=== PATIENT | female | born 2000 | race Caucasian/White ===

== ENCOUNTER 2018-09-23 07:33 | Emergency (ER) | payer OTHER ==
[~2018-09-23] VITALS: Ht 175.3 cm; Wt 90.7 kg
[2018-09-23] MEDS ORDERED: ZITHROMAX PO STA (08:02)
[2018-09-23 08:05] VITALS: BP 123/82
[2018-09-23] MEDS ORDERED: ROCEPHIN ONE (08:09)
[2018-09-23] MEDS ORDERED: ZITHROMAX ONE (08:09)
--- NOTE | 2018-09-23 08:09 | ER.PDOC ---
General Chief Complaint: Female Urogenital Problems Stated Complaint: FEMALE Time seen by MD: 08:00 Source: patient Exam Limitations: no limitations History of Present Illness Timing/Duration: week Severity/Quality: mild Location of Pain: low back pain LMP (females 10-50): 1 month Care: none Sexual [place] History: less than 2 months ago, multiple partners Contraceptive: none Associated Symptoms: lower back pain, urinary frequency Prior symptoms/Treatment: Similar symptoms previous, Recenly Seen, Treated by Doctor Allergies: Coded Allergies: codeine (Verified Allergy, Mild, ITCHING, 09/23/18) Past Medical History Medical History: other (uti) Surgical History: no surgical history LMP (females 10-50): last week Social History Smoking: greater than 1 pack/day Alcohol Use: rarely Drug Use: marijuana Reviewed Nursing Reviewed: Vital Signs, Abn. 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, No Motor/Sensory Deficits, Alert, Normal Mood/Affect, Oriented x 3 Skin: Normal Color, Warm/Dry Lymphatic: No Adenopathy Results/Orders Results/Orders Orders - NIRAV CONDE MD Urinalysis (09/23/18 07:49) Chlamydia/Gcamplification(Ref) (09/23/18 07:49) Hcg Urine (09/23/18 07:50) Ceftriaxone Sodium (Rocephin Im) (09/23/18 09:00) Azithromycin (Zithromax) (09/23/18 08:02) Ceftriaxone Sodium (Rocephin) (09/23/18 08:09) Azithromycin (Zithromax) (09/23/18 08:09) Lidocaine Hcl (Lidocaine 1% Vial) (09/23/18 08:10) Urine Culture (09/23/18 07:50) Vital Signs Date Time Temp Pulse Resp B/P (MAP) Pulse Ox O2 Delivery O2 Flow Rate FiO2 09/23/18 08:05 98.2 94 18 123/82 (96) 99 Room Air 98.2 09/23/18 07:58 98.2 94 20 99 Room Air 98.2 Administered Medications Medications (Trade) Dose Ordered Sig/Elva Route PRN Reason Start Time Stop Time Status Last Admin Dose Admin Azithromycin (Zithromax) 1,000 mg STAT STAT PO 09/23/18 08:02 09/23/18 08:07 DC 09/23/18 08:21 1,000 MG Ceftriaxone Sodium (Rocephin Im) 250 mg DAILY IM 09/23/18 09:00 10/23/18 08:59 09/23/18 08:21 250 MG Laboratory Tests Test 09/23/18 07:50 Urine Collection Type VOID Urine Color DEN (YELLOW) Urine Appearance CLOUDY (CLEAR) H Urine Bilirubin NEGATIVE MG/DL (NEGATIVE) Urine Ketones 15 mg/dL (NEGATIVE) H Urine Specific [place] 1.030 (1.005-1.035) Urine pH 5 (5.0-6.0) Urine Protein 500 mg/dL (NEGATIVE) H Urine Urobilinogen NORMAL (NEGATIVE) Urine Nitrate NEGATIVE (NEGATIVE) Urine Leukocyte Esterase 500/uL 2+ (NEGATIVE) Urine Blood 250 4+ (NEGATIVE) H Urine RBC TNTC RBC/HPF (NONE SEEN) H Urine WBC TNTC WBC/HPF (0-2) H Urine Squamous Epithelial Cells MANY #/HPF (FEW) Urine Bacteria MANY (NONE SEEN) H Urine Glucose NORMAL (NEGATIVE) Urine HCG, Qualitative NEGATIVE (NEGATIVE) Departure Time of Disposition: 09:00 Disposition: 01 HOME, SELF-CARE Impression: Primary Impression: Cystitis Additional Impression: STD exposure Condition: Improved Referrals: PCP,UNKNOWN (PCP) PRIMARY CARE PROVIDER Duration or Time Spent with Pa: 1 hr Problem Qualifiers NIRAV CONDE MD Sep 23, 2018 08:09
[2018-09-23] MEDS ORDERED: LIDOCAINE 1% VIAL ONE (08:10)
[2018-09-23 08:36] LABS: BILIRUBIN,URINE NEGATIVE (NEGATIVE); UROBILINOGEN,URINE NORMAL (NEGATIVE)
[2018-09-23 08:41] LABS: APPEARANCE,URINE CLOUDY (CLEAR); UA COLOR AMBER (YELLOW)
[2018-09-23 08:56] VITALS: BP 123/82
[2018-09-23] MEDS ORDERED: ROCEPHIN IM IM SCH (09:00)
== END 2018-09-23 08:55 | disposition home or self-care (01) ==
LOC: ER 07:33
DX: N30.90 Cystitis, unspecified without hematuria (principal); F17.210 Nicotine dependence, cigarettes, uncomplicated; F12.10 Cannabis abuse, uncomplicated; Z20.2 Contact with and (suspected) exposure to infections with a predominantly sexual mode of transmission; Z88.5 Allergy status to narcotic agent
CPT/HCPCS: 36415; 81000; 81025; 87077; 87086; 87186; 87491; 87591; 96372; 99284; J0696; J2001; Q0144